=== PATIENT | male | born 1940 | race Caucasian/White ===

== ENCOUNTER 2017-12-13 16:41 | Emergency (ER) | payer MEDICARE ==
[2017-12-13 17:35] VITALS: BP 130/69
--- NOTE | 2017-12-13 17:52 | UC ---
Ear Complaint HPI - HPI Summary HPI Summary: 77 year old male patient presents with bilateral loss of hearing. States started suddenly 10 days while washing his hair in the shower. States "it was like someone turned down the volume on the radio". Denies fever, chills, ear pain, drainage, URI symptoms, tinnitus, or vertigo. Has had issues with excessive cerumen in the past. - History of Current Complaint Chief Complaint: UCEar Stated Complaint: HEARING COMPLAINT Time Seen by Provider: 12/13/17 17:36 Hx Obtained From: Patient Onset/Duration: Sudden Onset Pain Intensity: 0 Associated Signs/Symptoms: Negative: Discharge, URI Symptoms - Allergies/Home Medications Allergies/Adverse Reactions: Allergies Allergy/AdvReac Type Severity Reaction Status Date / Time No Known Allergies Allergy Verified 12/13/17 17:35 PMH/Surg Hx/FS Hx/Imm Hx - Additional Past Medical History Additional PMH: non-contributory - Surgical History Surgical History: Yes Surgery Procedure, Year, and Place: hernia repair late - Family History Known Family History: Positive: Other - non-contributory - Social History Occupation: Retired Lives: Alone Alcohol Use: Weekly Alcohol Amount: 2-3 beers a week Substance Use Type: None Smoking Status (MU): Light Every Day Tobacco Smoker Type: Cigarettes Amount Used/How Often: 1/2 ppd Review of Systems Constitutional: Negative ENT: Other - hearing loss Is Patient Immunocompromised?: No All Other Systems Reviewed And Are Negative: Yes Physical Exam Triage Information Reviewed: Yes Appearance: Well-Appearing, No Pain Distress, Well-Nourished Vital Signs: Initial Vital Signs Temp 97.9 F 12/13/17 17:29 Pulse 63 12/13/17 17:29 Resp 18 12/13/17 17:29 BP 130/69 12/13/17 17:29 Pulse Ox 100 12/13/17 17:29 Vital Signs Reviewed: Yes ENT: Positive: Pharynx normal, Uvula midline, Other - Bilateral cerumen impaction. TMs not visualized.. Negative: Nasal congestion, Nasal drainage Neck: Positive: Supple, Nontender, No Lymphadenopathy Respiratory: Positive: No respiratory distress Cardiovascular: Positive: RRR Skin Exam: Normal Re-Evaluation - Re-Evaluation First Eval Re-Evaluation Time: 18:00 Change: Improved Comment: Patient reports improved hearing. Exam reveals bilateral patent canals. Mild to moderate erythema to the right upper ear canal. TM intact, opaque. Left TM intact, flat and erythematous. Ear Complaint Course/Dx - Course Course Of Treatment: 77 year old male with bilateral hearing loss secondary to impacted cerumen. Bilateral ear irrigation was performed. Post irrigation patient reports improved hearing. Exam reveals bilateral patent canals. Mild to moderate erythema to the right upper ear canal. TM intact, opaque. Left TM intact, flat and erythematous. Will have patient use Cipro HC 3 drops both ears twice daily for 7 days. Follow up with PCP in 2 weeks for recheck. - Differential Dx/Diagnosis Differential Diagnosis/HQI/PQRI: Cerumen Impaction, Otitis Externa, Otitis Media Provider Diagnoses: Bilateral cerumen impaction, Bilateral otits externa Discharge - Sign-Out/Discharge Documenting (check all that apply): Patient Departure - Discharge Plan Condition: Stable Disposition: HOME Prescriptions: Ciprofloxacin/Hydrocortisone [Cipro Hc Otic Suspension] 10 ml OT BID #1 drops.susp Patient Education Materials: Otitis Externa (DC), Cerumen Impaction (ED) Referrals: Willie Fox [Primary Care Provider] - 2 Weeks - Billing Disposition and Condition Condition: STABLE Disposition: Home
== END 2017-12-13 18:16 | disposition home or self-care (01) ==
LOC: UCCORT 16:41
DX: H61.23 Impacted cerumen, bilateral (principal); H60.93 Unspecified otitis externa, bilateral; F17.210 Nicotine dependence, cigarettes, uncomplicated
CPT/HCPCS: 99203; G0463